=== PATIENT | male | born 1990 | race Caucasian/White ===

== ENCOUNTER 2019-04-28 17:22 | Emergency (ER) | payer OTHER, SELFPAY ==
[2019-04-28 17:36] VITALS: BP 146/91; PULSE 70; RESP 18; TEMP 36.8; O2SAT 97
--- NOTE | 2019-04-28 18:15 | ED.URI ---
HPI - URI/Sore Throat General Chief Complaint: Upper Respiratory Infection Stated Complaint: Congestion/Ear Pain Time Seen by Provider: 04/28/19 18:15 Source: patient and RN notes reviewed Mode of arrival: ambulatory Limitations: no limitations History of Present Illness HPI Narrative: 29-year-old male presents with concern for 7-day history flu symptoms, sore throat, ear pain, chest congestion, shortness of breath, coughing, nasal congestion. Reports symptoms have mildly improved, however ear pain remains as well as chest congestion, cough, shortness of breath. MD elicited complaint: sore throat Related Data Home Medications Medication Instructions Recorded Confirmed hydroxyzine HCl 10 mg PO TID 04/28/19 04/28/19 ziprasidone HCl [Geodon] 20 mg PO BID 04/28/19 04/28/19 Allergies Allergy/AdvReac Type Severity Reaction Status Date / Time No Known Allergies Allergy Mild Verified 05/16/10 22:47 Review of Systems Review of Systems: Narrative: CONSTITUTIONAL: Reports malaise, chills, sweats, or fever. EYES: Denies visual changes, redness, or discharge. ENT: Reports rhinorrhea, congestion, sinus pain, otalgia and sore throat. CARDIOVASCULAR: Denies chest pain, palpitations, or edema. RESPIRATORY: Reports cough, dyspnea. GASTROINTESTINAL: Denies abdominal pain, nausea, vomiting, diarrhea SKIN: Denies rash or itching. MUSCULOSKELETAL: Reports myalgia. NEUROLOGIC: Reports headache. All systems reviewed & are unremarkable except as noted in HPI and below PMFSH Comments At time of signature, agree with nursing past medical, surgical, social and family history. There is no relevant family history pertinent to the presenting complaint Exam Narrative: Exam Narrative: GENERAL: Well-appearing, well-nourished, and in no acute distress. HEAD: Normocephalic EYES: PERRLA, conjunctivae clear ENT: Nares clear, turbinates edematous and erythematous, clear discharge. Mucous membranes moist. TM pearly storm with dull light reflex bilaterally; no tragal tenderness. Oropharynx erythematous without lesions. Tonsils enlarged and without exudate, no drooling, no hoarseness, no trismus. NECK: Supple. No lymphadenopathy CHEST: Scattered expiratory wheeze, otherwise clear to auscultation, breath sounds equal. No rhonchi, rales, or stridor. No respiratory distress, speaks in full sentences. HEART: Regular rate and rhythm. No murmur heard. Normal peripheral pulses. SKIN: Warm, dry, no rash. NEURO: Alert and oriented x3. PSYCH: Normal mood and affect Course Course Emergency Course: Patient is aware of diagnosis, understands and agrees to treatment plan. Anticipatory guidance given. Patient agrees to follow-up as directed and is aware of reasons to seek care at the emergency department. Portions of this record may have been created with voice recognition software Vital Signs Vital signs: Vital Signs Temperature 98.2 F 04/28/19 17:36 Pulse Rate 70 04/28/19 17:36 Respiratory Rate 18 04/28/19 17:36 Blood Pressure 146/91 H 04/28/19 17:36 Pulse Oximetry 97 04/28/19 17:36 Temperature 98.2 F 04/28/19 17:36 Pulse Rate 70 04/28/19 17:36 Respiratory Rate 18 04/28/19 17:36 Blood Pressure 146/91 H 04/28/19 17:36 Pulse Oximetry 97 04/28/19 17:36 Reviewed. Pt has been instructed to follow up with his primary care provider within the next week regarding his elevated blood pressure today. MDM - URI/Sore Throat MDM Narrative Medical decision making narrative: Differential diagnosis considered: Strep pharyngitis, allergic rhinitis, upper respiratory tract infection, sinusitis, rhinosinusitis, nasopharyngitis. viral pharyngitis, otitis media, otitis externa, pneumonia, bronchitis, viral cough syndrome, viral syndrome, and influenza. Exam findings show no acute concerns or changes; patient is non-toxic appearing and is in no distress. Patient is appropriate for outpatient treatment and follow-up. Lab Data Attestation: I reviewed the p
== END 2019-04-28 18:40 | disposition home or self-care (01) ==
PROVIDERS: Emergency Provider Nurse Practitioner
DX: J32.9 Chronic sinusitis, unspecified (principal); J40 Bronchitis, not specified as acute or chronic; L40.9 Psoriasis, unspecified; F31.9 Bipolar disorder, unspecified
CPT/HCPCS: 87081; 87804; 87880; 99213; G0463

== ENCOUNTER 2019-05-09 19:27 | Emergency (ER) | payer OTHER, SELFPAY ==
--- NOTE | 2019-05-09 19:44 | ED.ABDPAIN ---
HPI - Abdominal Pain General Chief Complaint: Nausea/Vomiting/Diarrhea Stated Complaint: Abd pain Time Seen by Provider: 05/09/19 19:52 Source: patient and RN notes reviewed Mode of arrival: ambulatory Limitations: no limitations History of Present Illness HPI narrative: 29-year-old male presents with concern for 1 day history of nausea, vomiting, diarrhea, body aches. Reports family members with similar symptoms. Denies fever, chills, sweats, rhinorrhea, nasal congestion. Denies taking medications for symptoms. Reports recent sinus infection with subsequent ruptured left TM which she was previously seen for. He reports those symptoms resolved. MD elicited complaint: other (Nausea, vomiting, diarrhea) Related Data Home Medications Medication Instructions Recorded Confirmed ziprasidone HCl [Geodon] 20 mg PO BID 04/28/19 05/09/19 Allergies Allergy/AdvReac Type Severity Reaction Status Date / Time No Known Allergies Allergy Mild Verified 05/16/10 22:47 Review of Systems Review of Systems: Narrative: CONSTITUTIONAL: Reports malaise. Denies chills, sweats, or fever. EYES: Denies visual changes, redness, or discharge. ENT: Denies rhinorrhea, congestion, sinus pain, otalgia or sore throat. CARDIOVASCULAR: Denies chest pain, palpitations, or edema. RESPIRATORY: Denies cough or dyspnea. GASTROINTESTINAL: Denies abdominal pain, bloody, or mucous stools. Reports nausea, vomiting, diarrhea GENITOURINARY: Denies dysuria or hematuria. MUSCULOSKELETAL: Reports myalgia. NEUROLOGIC: Denies numbness, weakness, or headache. All systems reviewed & are unremarkable except as noted in HPI and below PMFSH Comments At time of signature, agree with nursing past medical, surgical, social and family history. There is no relevant family history pertinent to the presenting complaint Exam Narrative: Exam Narrative: GENERAL: Well-appearing, well-nourished, and in no acute distress. HEAD: Normocephalic, atraumatic. EYES: PERRLA, conjunctivae clear, and EOMI. ENT: Nares clear, turbinates pink, no rhinorrhea or epistaxis. Mucous membranes moist. Oropharynx without edema, erythema, or lesions. Tonsils not enlarged and without exudate. NECK: Supple. No lymphadenopathy CHEST: Speaks in full sentences. No respiratory distress. HEART: Regular rate and rhythm. ABDOMEN: Soft, flat, nondistended. No guarding, rebound tenderness, or rigid. No pulsatilla masses. Bowel sounds present in all four quadrants. No organomegaly. Negative Mojica?s sign. No periumbilical tenderness. No Supra public tenderness or distension. Good femoral pulses bilaterally. No hernia noted. No scars or surface trauma. SKIN: Warm, dry, no rash. NEURO: Alert and oriented x3. PSYCH: Normal mood and affect Course Course Emergency Course: Patient is aware of diagnosis, understands and agrees to treatment plan. Anticipatory guidance given. Patient agrees to follow-up as directed and is aware of reasons to seek care at the emergency department. Portions of this record may have been created with voice recognition software Vital Signs Vital signs: Vital Signs Temperature 97.8 F 05/09/19 19:46 Pulse Rate 105 H 05/09/19 19:46 Respiratory Rate 16 05/09/19 19:46 Blood Pressure 140/88 05/09/19 19:46 Pulse Oximetry 100 05/09/19 19:46 Temperature 97.8 F 05/09/19 19:46 Pulse Rate 105 H 05/09/19 19:46 Respiratory Rate 16 05/09/19 19:46 Blood Pressure 140/88 05/09/19 19:46 Pulse Oximetry 100 05/09/19 19:46 Reviewed. Pt has been instructed to follow up with his primary care provider within the next week regarding his elevated blood pressure today. MDM - Abdominal Pain MDM Narrative Medical decision making narrative: No evidence of pancreatitis, AAA, cholecystitis, choledocholithiasis, cholangitis, mesenteric ischemia, small bowel obstruction, diverticulitis, colitis, appendicitis. Patient has no history of peptic ulcer, H. pylori, chronic aspirin NSAID
[2019-05-09 19:46] VITALS: BP 140/88; PULSE 105; RESP 16; TEMP 36.6; O2SAT 100
== END 2019-05-09 20:05 | disposition home or self-care (01) ==
PROVIDERS: Emergency Provider Nurse Practitioner
DX: R11.2 Nausea with vomiting, unspecified (principal); R19.7 Diarrhea, unspecified; F31.9 Bipolar disorder, unspecified
CPT/HCPCS: 87804; 99213; G0463

== ENCOUNTER 2020-09-20 02:16 | Day surgery (SDC) | payer OTHER, SELFPAY ==
[2020-09-16 09:57] VITALS: BMI 33.1
--- NOTE | 2020-09-18 08:58 | PM.IMHP ---
H&P: HPI History of Present Illness Date/Time: 09/18/20 08:58 patient presents for planned surgical procedure. No changes in symptoms or medical history. Chief Complaint: Right EAC lesion, cholesteatoma, retained myringotomy tube left cerumen impaction Review of Systems Constitutional: Constitutional: Denies fatigue, Denies fever(s) and Denies lethargy Eyes: Eyes: Denies blurry vision and Denies change in vision ENT: Reports as per HPI Cardiovascular: Cardiovascular: Denies chest pain Respiratory: Respiratory: Denies cough Endocrine: Endocrine: Denies fatigue Hematologic/Lymphatic: Hematologic/Lymphatic: Denies easy bleeding, Denies easy bruising and Denies lymphadenopathy Allergic/Immunologic: Allergic/Immunologic: Denies seasonal rhinorrhea [facility] Past Medical History Medical History Central perforation of tympanic membrane, left ear Chronic otitis media of right ear Surgical History Surgical History Hx of tympanostomy tubes Family History Family History Father Cancer Social History Social History (Updated 08/19/20 @ 10:42 by Olinda Burroughs MA) Smoking packs per day: 1 Smoking cigarettes per day: 20.0 Years smoked: 15 Smoking pack-years: 15.00 Smoking status: Current every day smoker Tobacco type: cigarettes Second hand tobacco smoke exposure: Yes Alcohol intake: former Substance use: unknown Substance use type: marijuana Other substance usage details: very sparingly Last use: 09/07/20 Living arrangements: with family Spiritual care concerns: No Meds Home Medications and Allergies Home Medications Medication Instructions Recorded Confirmed Type ziprasidone HCl [Geodon] 20 mg PO BID 04/28/19 09/16/20 History albuterol sulfate 90 mcg/actuation 2 inh INHALATION Q4H PRN #8.5 g 06/06/20 09/16/20 Rx aerosol inhaler fluocinonide 0.05 % topical 1 applic TOPICAL BID #60 ml 08/02/20 09/16/20 Rx solution fluocinonide-emollient 0.05 % 1 applic TOPICAL BID #60 g 08/02/20 09/16/20 Rx topical cream Allergies Allergy/AdvReac Type Severity Reaction Status Date / Time No Known Allergies Allergy Mild Verified 09/16/20 09:54 Exam Const: General: cooperative, healthy appearing, comfortable, well developed and alert HENMT: Head: normal to inspection, normocephalic and atraumatic Ears: hearing grossly normal bilaterally, external ears normal and EAC's not normal ( cerumen obstructs the left lesion in the right) General nose exam: Normal external nose present, Normal nares present, No nasal polyps present, Normal nasal mucous membranes and turbinates present and Normal septum present Face and sinus: normal facial exam Mouth: Yes Normal oral and palatal mucosa present, Yes lip normal, Yes tongue normal, Yes oropharynx normal and Yes moist mucous membranes Teeth and gingiva: dentition normal and gingiva normal Throat: posterior oropharynx normal, tonsils normal and uvula midline Eyes: General: appearance normal, both eyes and all related structures Periorbital: periorbital findings normal Eyelids: eyelids normal Conjunctivae: conjunctivae normal Sclera: sclerae normal Neck: Neck: normal visual inspection, full ROM and no lymphadenopathy Thyroid: thyroid normal Lymphatic: no lymphadenopathy noted Resp: Effort & Inspection: normal respiratory effort and able to speak in complete sentences Cardio: Jugular venous distension: no JVD Neuro: Cranial nerves: Yes CN's II-XII intact bilaterally Assessment and Plan Assessment and plan (1) Cholesteatoma of right ear: Code(s): H71.91 - Unspecified cholesteatoma, right ear Status: Acute Assessment and Plan: plan is for the operating room for bilateral ear exam under anesthesia debridement of right-sided lesion possible ep
[2020-09-20] VITALS (8 sets, daily range): BP systolic 129–158; BP diastolic 70–95; PULSE 65–82; RESP 15–22; TEMP 36.3–36.4; O2SAT 94–99
--- NOTE | 2020-09-20 07:03 | WPDHPUPDATE1 ---
History and Physical Update Update Date/Time: 09/20/20 07:03 History and Physical has been reviewed, including an updated exam of the patient. There are NO changes in the patient's condition. Risks, benefits, and alternatives have been discussed and questions answered. Patient agrees to proceed with procedure.
--- NOTE | 2020-09-20 10:57 | WPDANESEPPF ---
Anes - Initial Pre Proc Eval Procedure: Operation Date: 09/20/20 12:30 Proposed Procedures p Excision Right Ear Lesion, Right Myringoplasty with Paper Patch - Moreno Reddy MD Date/Time: 09/20/20 10:57 Surgeon: Moreno Reddy MD Pre Op Diagnosis: Right tm perforation , Right ear lesion Patient Data Age: 30 Gender: M Height: 1.88 m Weight: 117.2 kg Allergies Allergy/AdvReac Type Severity Reaction Status Date / Time No Known Allergies Allergy Mild Verified 09/16/20 09:54 Home Medications Medication Instructions Recorded Confirmed Type ziprasidone HCl [Geodon] 20 mg PO BID 04/28/19 09/16/20 History albuterol sulfate 90 mcg/actuation 2 inh INHALATION Q4H PRN #8.5 g 06/06/20 09/16/20 Rx aerosol inhaler fluocinonide 0.05 % topical 1 applic TOPICAL BID #60 ml 08/02/20 09/16/20 Rx solution fluocinonide-emollient 0.05 % 1 applic TOPICAL BID #60 g 08/02/20 09/16/20 Rx topical cream Patient hx anesthesia problems: none Family hx anesthesia problems: none PMFSH Past Medical History Medical History Central perforation of tympanic membrane, left ear Chronic otitis media of right ear Surgical History Surgical History Hx of tympanostomy tubes Family History Family History Father Cancer Social History Social History Smoking packs per day: 1 Smoking cigarettes per day: 20.0 Years smoked: 15 Smoking pack-years: 15.00 Smoking status: Current every day smoker Tobacco type: cigarettes Second hand tobacco smoke exposure: Yes Alcohol intake: former Substance use: unknown Substance use type: marijuana Other substance usage details: very sparingly Last use: 09/07/20 Living arrangements: with family Spiritual care concerns: No Anes - Eval Final PreProcedure Day of Procedure 09/20/20 10:57 Patient weight: obese Lungs: clear to auscultation Airway: Mallampati scale class II and special considerations poor dentition Neurological: alert and oriented Last oral intake: >/= 8 hours ASA classification: III Emergent: no Anesthetic plan: proceed Anesthesia type and monitoring: general LMA and standard monitoring Informed Consent: The patient's anesthetic plan and its attendant risks and benefits were discussed with the patient/family/POA. Questions were solicited and answers provided to the satisfaction of the patient/family/POA.
[2020-09-20] MEDS: LACTATED RINGERS 1,000 ML 30 ML IV CONT (11:00)
[2020-09-20] MEDS: ACETAMINOPHEN 500 MG TABLET 1000 MG PO (11:00)
[2020-09-20] MEDS: ceFAZolin 2 GM/D5W 50 ML 2 GM/50 ML BAG IVPB (11:25)
--- NOTE | 2020-09-20 12:04 | P.OP_ITS ---
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 The patient then brought to the operative timeout performed. General anesthesia induced LMA secured. Arturo microscope brought into the field right EAC examined lesion removed from the TM consistent with cholesteatoma. Middle ear safe healthy significant retraction pocket but lesion not involving middle ear. Left ear examined retraction pocket no cholesteatoma or lesion. I performed all dictated Mandujano portions. Care the patient to Anesthesiology. No blood loss. No complications. Estimated Blood Loss 0 Drains No Packing No Pathology yes Complications No immediate complications Condition stable Disposition PACU
--- NOTE | 2020-09-20 12:17 | SUR.PHASEI ---
dr parker at side and talked to pt.
== END 2020-09-20 13:40 | disposition home or self-care (01) ==
PROVIDERS: PCP Family Medicine; Visit Provider Otolaryngology
PROC: (CPT 69424; principal; 2020-09-20 12:30)
DX: H60.41 Cholesteatoma of right external ear (principal); F17.210 Nicotine dependence, cigarettes, uncomplicated; F12.90 Cannabis use, unspecified, uncomplicated
CPT/HCPCS: 69145; A9270; J0690; J1100; J2250; J2405; J2704; J3010; J7120

== ENCOUNTER 2021-03-06 12:30 | Emergency (ER) | payer OTHER, SELFPAY ==
[2021-03-06 13:13] VITALS: BP 156/86; PULSE 87; RESP 20; TEMP 36.6; O2SAT 99
--- NOTE | 2021-03-06 13:52 | ED.LOWEXIN ---
HPI - Extremity Injury (Lower) General Chief Complaint: Extremity Injury, Lower Stated Complaint: Lift Knee Injury Time Seen by Provider: 03/06/21 13:24 Source: patient and RN notes reviewed Mode of arrival: ambulatory History of Present Illness HPI Narrative: This is a 31-year-old male presented to urgent care with complaints of left knee pain. According to patient approximately 1 month ago he injured his knee and has been wearing a brace with the use of ibuprofen to relieve his symptoms. Patient notes that yesterday he took off his brace and while at work he felt a pop to the back of his knee. Patient notes that he has had history of left knee pain but previously the pain is in the front of the knee this particular time it is in the back of the knee. The patient denies SOB, CP, palpitation, neurovascular deficiency, sensations positive, pulses present, extremity numbness, lightheadedness, dizziness, constipation, diarrhea, chills, or fever. Patient notes that he feels the most pain when he is bends his knee or bears weight. Related Data Home Medications Medication Instructions Recorded Confirmed albuterol sulfate See Rx Instructions .ROUTE .COMPLEX 03/06/21 03/06/21 fluocinonide-emollient See Rx Instructions .ROUTE .COMPLEX 03/06/21 03/06/21 [Fluocinonide-E] trazodone 50 mg PO DAILY 03/06/21 03/06/21 ziprasidone HCl 40 mg PO DAILY 03/06/21 03/06/21 Allergies Allergy/AdvReac Type Severity Reaction Status Date / Time No Known Allergies Allergy Mild Verified 09/20/20 12:01 [facility] Past Medical History Medical History Central perforation of tympanic membrane, left ear Chronic otitis media of right ear Encounter for general adult medical examination with abnormal findings Otitis externa of left ear Surgical History Surgical History History of ear surgery right cholesteatoma Hx of tympanostomy tubes Family History Family History Father Cancer Social History Social History Smoking packs per day: 1 Smoking cigarettes per day: 20.0 Years smoked: 15 Smoking pack-years: 15.00 Smoking status: Current every day smoker Tobacco type: cigarettes Second hand tobacco smoke exposure: Yes Alcohol intake: former Substance use: unknown Substance use type: marijuana Other substance usage details: very sparingly Last use: 09/07/20 Spiritual care concerns: No Exam Narrative: GENERAL: This is a well-nourished, well-developed patient, in no apparent distress. HEAD: normocephalic, atraumatic. EYES: PERRL. Sclera clear/white. Vision is grossly intact. EARS: External ears normal, auditory canals clear and without drainage, TMs normal without perforation. Hearing grossly intact. NOSE: External nose normal with no obvious nasal discharge, nares without redness, no rhinorrhea. THROAT: Mucous membranes moist, posterior pharynx clear. NECK: Neck supple, non-tender without lymphadenopathy, masses or thyromegaly. CARDIOVASCULAR: Regular rate and rhythm without murmurs, gallops, or rubs. RESPIRATORY: Clear to auscultation. Breath sounds equal bilaterally. No wheezes, rales, or rhonchi. GASTROINTESTINAL: Abdomen soft, non-tender, nondistended. Bowel sounds are active. No hepato-splenomegaly, or palpable masses. No guarding. SKIN: warm, intact with no suspicious lesions or rash, good texture and turgor. NEURO: awake, alert, and oriented to person, place and time. There were no obvious focal neurologic abnormalities. Steady gait EXTREMITIES: Normal range of motion., Pain with bending to the left leg no edema. No calf tenderness. Negative Homans sign bilaterally. BACK: Nontender without deformity or crepitance. No flank tenderness. Course Course Emergency Course: Diagnosed with strain or sp
== END 2021-03-06 13:55 | disposition home or self-care (01) ==
PROVIDERS: Emergency Provider Nurse Practitioner; PCP Family Medicine
DX: M25.562 Pain in left knee (principal); F17.210 Nicotine dependence, cigarettes, uncomplicated
CPT/HCPCS: 99213; G0463

== ENCOUNTER 2021-06-30 14:34 | Emergency (ER) | payer OTHER, SELFPAY ==
[2021-06-30 14:40] VITALS: BP 172/99; PULSE 86; RESP 20; TEMP 36.7; O2SAT 98
--- NOTE | 2021-06-30 15:17 | ED.GENADULT ---
HPI - General Adult General Chief complaint: Skin/Abscess/Foreign Body Stated complaint: Right Side Pain Time Seen by Provider: 06/30/21 15:08 Source: patient and RN notes reviewed Mode of arrival: ambulatory Limitations: no limitations History of Present Illness HPI narrative: Patient presents today complaining of a 3-week history of occasionally productive cough. Reports the cough has been slightly improving, but 6 days ago he had a coughing fit and felt a tear in his abdomen area and reports onset of bruising to the right lower abdomen that has been spreading along the lower abdomen for the past 6 days towards the midline. Denies fever, shortness of breath, but also reports some pain to the right anterior lower rib area. He has been taking cold medicine and Mucinex as well as 2 800 mg ibuprofen daily. MD complaint: Cough, bruising Related Data Home Medications Medication Instructions Recorded Confirmed ziprasidone HCl 40 mg PO DAILY 03/06/21 06/30/21 Allergies Allergy/AdvReac Type Severity Reaction Status Date / Time No Known Allergies Allergy Mild Verified 06/30/21 14:55 Review of Systems Review of Systems: CONSTITUTIONAL: Denies body aches, fever, chills, or sweats. EYES: Denies visual changes, redness, or discharge. ENT: Denies rhinorrhea, congestion, sore throat, or otalgia. CARDIOVASCULAR: Denies chest pain, palpitations, or edema. RESPIRATORY: Deniesdyspnea.+ Cough GASTROINTESTINAL: Denies abdominal pain, nausea, vomiting, or diarrhea. GENITOURINARY: Denies dysuria or hematuria. SKIN: Denies rash, itching, or wounds.+ Bruising to the abdomen MUSCULOSKELETAL: Denies back pain, joint pain, or myalgia. NEUROLOGIC: Denies headache, numbness, tingling, or weakness. PSYCH: Denies depression or anxiety. [facility] Past Medical History Medical History Central perforation of tympanic membrane, left ear Chronic otitis media of right ear Encounter for general adult medical examination with abnormal findings Otitis externa of left ear Surgical History Surgical History History of ear surgery right cholesteatoma Hx of tympanostomy tubes Family History Family History Father Cancer Social History Social History Smoking packs per day: 1 Smoking cigarettes per day: 20.0 Years smoked: 15 Smoking pack-years: 15.00 Smoking status: Current every day smoker Tobacco type: cigarettes Second hand tobacco smoke exposure: Yes Alcohol intake: former Substance use: unknown Substance use type: marijuana Other substance usage details: very sparingly Last use: 09/07/20 Spiritual care concerns: No Comments At time of signature, I have reviewed and agree with nursing past medical, surgical, social and family history unless otherwise noted. Please see nursing chart for further information. There is no relevant family history pertinent to the presenting complaint Exam Narrative: GENERAL: Well-appearing, well-nourished, and in no acute distress. HEAD: Normocephalic, atraumatic. EYES: EOMI. No redness or drainage. Conjunctivae normal. ENT: Mucous membranes pink and moist. Nares clear. No rhinorrhea. NECK: Normal AROM. Supple. No lymphadenopathy. CHEST: No respiratory distress. Clear to auscultation. Right anterior lower rib tenderness HEART: Regular rate and rhythm. No murmur appreciated. Normal peripheral pulses. ABDOMEN: Soft, nontender, nondistended, normal active bowel sounds. Ecchymosis of the right lower abdomen extending towards the midline. This area is mildly tender to palpation. MUSCULOSKELETAL: No bony tenderness. EXTREMITIES: Normal range of motion. No edema. SKIN: Warm, dry, no rash. Capillary refill normal. Normal skin turgor. NEURO: No focal
== END 2021-06-30 15:26 | disposition short-term general hospital (02) ==
PROVIDERS: Emergency Provider Nurse Practitioner; PCP Family Medicine
DX: R58 Hemorrhage, not elsewhere classified (principal); R05.9 Cough, unspecified; F17.210 Nicotine dependence, cigarettes, uncomplicated
CPT/HCPCS: 99212; G0463

== ENCOUNTER 2023-07-06 17:59 | Emergency (ER) | payer OTHER, SELFPAY ==
--- NOTE | ~2023-07-06 | XR_ITS ---
EXAM: XR wrist RT min 3V DATE: 07/06/2023 18:30 HISTORY: right wrist pain no injury . COMPARISON: None available. FINDINGS: Normal mineralization. No fracture or dislocation. No lytic or blastic lesion. Joint space s are maintained. No erosion or periosteal change. Soft tissues within normal limits. IMPRESSION: No acute osseous finding in the right wrist. Reviewed, dictated and finalized at location K.
--- NOTE | ~2023-07-06 | XR_ITS ---
EXAM: XR elbow RT min 3V DATE: 07/06/2023 18:30 HISTORY: right elbow pain , no injury . COMPARISON: None available. FINDINGS: Normal mineralization. No fracture or dislocation. No lytic or blastic lesion. Joint space s are maintained. No erosion or periosteal change. Soft tissues within normal limits. IMPRESSION: No acute osseous finding in the right elbow. Reviewed, dictated and finalized at location K.
[2023-07-06 18:05] VITALS: BP 138/91; PULSE 96; RESP 16; TEMP 36.9; O2SAT 97
--- NOTE | 2023-07-06 18:17 | ED.GENADULT ---
HPI - General Adult General Chief complaint: Extremity Injury, Lower Stated complaint: Right Wrist and Elbow Pain Source: patient Mode of arrival: ambulatory Limitations: no limitations History of Present Illness HPI narrative: Patient presents for evaluation of right wrist and right elbow pain. He indicates he was moving some items earlier today just prior to the time of symptom onset. He does not recollect any specific movement or injury, although his symptoms started after moving. He states none of the items which he was moving was particularly heavy. He has a history of a wrist sprain on the right and this feels similar. He rates the pain in his right elbow is 3/10 and describes it is aching. He rates the pain in his right wrist as 7/10. He tried taking naproxen and Tylenol for symptoms. He denies loss of range of motion but movement makes his symptoms worse. No paresthesias. He is right-hand dominant. Related Data Home Medications Medication Instructions Recorded Confirmed ziprasidone HCl 20 mg capsule 40 mg PO DAILY 03/06/21 07/06/23 Allergies Allergy/AdvReac Type Severity Reaction Status Date / Time No Known Allergies Allergy Mild Verified 07/06/23 18:12 Review of Systems Review of Systems: CONSTITUTIONAL: Denies fever, chills, or sweats. EYES: Denies visual changes, redness, or discharge. ENT: Denies rhinorrhea, congestion, sore throat, or otalgia. CARDIOVASCULAR: Denies chest pain, palpitations, or edema. RESPIRATORY: Denies cough or dyspnea. GASTROINTESTINAL: Denies abdominal pain, nausea, vomiting, or diarrhea. GENITOURINARY: Denies dysuria or hematuria. SKIN: Denies rash or itching. MUSCULOSKELETAL: Reports right wrist and right elbow pain NEUROLOGIC: Denies headache, numbness, dizziness, or weakness. PSYCHIATRIC: Denies anxiety or depression. [facility] Past Medical History Medical History Central perforation of tympanic membrane, left ear Chronic otitis media of right ear Encounter for general adult medical examination with abnormal findings Otitis externa of left ear Psoriasis Surgical History Surgical History History of ear surgery right cholesteatoma Hx of tympanostomy tubes Family History Family History Father Cancer Social History Social History Smoking packs per day: 1 Smoking cigarettes per day: 20.0 Years smoked: 15 Smoking pack-years: 15.00 Smoking status: Current every day smoker Tobacco type: cigarettes Second hand tobacco smoke exposure: Yes Alcohol intake: former Substance use: unknown Substance use type: marijuana Other substance usage details: very sparingly Last use: 09/07/20 Lack of Transportation: No Lack of Food: Never True Current Housing: I Have Housing Concerned About Future Housing: No Difficulty Paying Gas/Electric Bills: No Difficulty Paying for Meds: YES Currently Unemployed: No Education: High School Diploma/GED Living arrangements: with family Spiritual care concerns: No Exam Narrative: GENERAL: Well-appearing, well-nourished, and in no acute distress. HEAD: Normocephalic, atraumatic. EYES: PERRLA and EOMI. ENT: Nares clear, no rhinorrhea or epistaxis. Mucous membranes moist. Oropharynx without tonsillar hypertrophy exudate or other lesions. Bilateral TMs pearly storm nonbulging NECK: Supple. No adenopathy or masses. No carotid bruits or JVD CHEST: Clear to auscultation. No respiratory distress. No wheezes rales or rhonchi HEART: Regular rate and rhythm. No murmur heard. Normal peripheral pulses. ABDOMEN: Soft, nontender, nondistended, normal active bowel sounds. EXTREMITIES: Full range of motion of the right wrist but moves with hesitancy secondary to pain. 4/5
== END 2023-07-06 18:50 | disposition home or self-care (01) ==
PROVIDERS: Emergency Provider Nurse Practitioner
DX: S63.501A Unspecified sprain of right wrist, initial encounter (principal); S53.401A Unspecified sprain of right elbow, initial encounter; T14.90XA Injury, unspecified, initial encounter; F17.210 Nicotine dependence, cigarettes, uncomplicated
CPT/HCPCS: 73080; 73110; 99214; G0463

== ENCOUNTER 2024-06-13 11:36 | Emergency (ER) | payer SELFPAY ==
[2024-06-13 11:45] VITALS: BP 167/99; PULSE 82; RESP 20; TEMP 36.7; O2SAT 100
--- NOTE | 2024-06-13 12:04 | ED_ITS ---
HPI - Male Genitourinary General Chief complaint: Urogenital-Male Stated complaint: Testicular Pain Time Seen by Provider: 06/13/24 11:55 Source: patient, RN notes reviewed and old records reviewed Mode of arrival: ambulatory Limitations: no limitations History of Present Illness HPI Narrative: 34 year old male who [facility] with complaints of having testicle pain to the left side since Wednesday. Patient reports that pain is worse with sitting or with ambulation.Patient reports that he has noted increased scrotal swelling and left testicle swelling for the past 2 days, Patient reports that he has been taking Tylenol, Ibuprofen and using ice and also some naproxen for his discomfort and swelling. Patient reports no difficulty with voiding or any concern for STD exposure. MD Complaint: testicle pain, testicle swelling and other (some warmth) Onset (ago): day(s) (5-6 days) Location: left testicle Quality: aching and other (soreness) Exacerbating factors: other (sitting and walking) Associated symptoms: Reports other (redness swelling left testicle) Related Data Home Medications ?Medication ?Instructions ?Recorded ?Confirmed ?Last Taken ?Type No Home Medications 06/13/24 06/13/24 Unknown History Allergies Allergy/AdvReac Type Severity Reaction Status Date / Time No Known Allergies Allergy Mild Verified 06/13/24 12:00 Review of Systems Review of Systems: CONSTITUTIONAL: Denies fever, chills, or sweats. CARDIOVASCULAR: Denies chest pain, palpitations, or edema. RESPIRATORY: Denies cough or dyspnea. GASTROINTESTINAL: Denies abdominal pain, nausea, vomiting, or diarrhea. GENITOURINARY: Reports no dysuria, frequency, urgency. Denies flank pain or hematuria. reports pain to left testicle since Wednesday, no difficulty voiding or any penis discharge, scrotal swelling and swelling left testicle SKIN: Denies rash or itching. MUSCULOSKELETAL: Denies back pain or myalgia. Denies CVA tenderness NEUROLOGIC: Denies headache All systems reviewed & are unremarkable except as noted in HPI and below PMFSH Past Medical History Medical History Psoriasis Otitis externa of left ear Encounter for general adult medical examination with abnormal findings Chronic otitis media of right ear Central perforation of tympanic membrane, left ear Surgical History Surgical History History of ear surgery right cholesteatoma Hx of tympanostomy tubes Family History Family History Father Cancer Social History Social History Smoking packs per day: 1 Smoking cigarettes per day: 20.0 Years smoked: 15 Smoking pack-years: 15.00 Smoking status: Current every day smoker Tobacco type: cigarettes Second hand tobacco smoke exposure: Yes Alcohol intake: former Substance use: unknown Substance use type: marijuana Other substance usage details: very sparingly Last use: 09/07/20 Lack of Transportation: No Lack of Food: Never True Current Housing: I Have Housing Concerned About Future Housing: No Difficulty Paying Gas/Electric Bills: No Difficulty Paying for Meds: YES Currently Unemployed: No Education: High School Diploma/GED Living arrangements: with family Spiritual care concerns: No Comments At time of signature, agree with nursing past medical, surgical, social and family history. There is no relevant family history pertinent to the presenting complaint Exam Narrative: GENERAL: Well-appearing, well-nourished, and in some acute distress related to testicle pain and swelling. HEAD: Normocephalic, atraumatic. NECK: Supple.no lymphadenopathy CHEST: Clear to auscultation. No respiratory distress.SAO2 100% on room air HEART: Regular rate and rhythm. No murmur heard. Normal peripheral pulses. ABDOMEN: Soft, nontender, nondistended, normal active bowel sounds. No CVA tenderness. Scrotal swelling noted on examination with left testicle swollen in comparison to right, painful on palpation with some warmth left testicle, cremasteric reflex present EXTREMITIES: Normal range of motion. No edema. SKIN: Warm, dry, no rash. NEURO: No focal deficits. Alert and oriented x3. Course Course Emergency Course: Patient is aware of diagnosis, understands and agrees to treatment plan.? Anticipatory guidance given.? Patient agrees to follow-up as directed and is aware of reasons to seek care at the emergency department. Portions of this record may have been created with voice recognition software Level of Care: Express Care Visit Vital Signs Vital signs: Vital Signs Temperature 36.7 C 06/13/24 11:45 Pulse Rate 82 06/13/24 11:45 Respiratory Rate 20 06/13/24 11:45 Blood Pressure 167/99 H 06/13/24 11:45 Pulse Oximetry 100 06/13/24 11:45 Oxygen Delivery Room Air 06/13/24 11:45 Temperature 36.7 C 06/13/24 11:45 Pulse Rate 82 06/13/24 11:45 Respiratory Rate 20 06/13/24 11:45 Blood Pressure 167/99 H 06/13/24 11:45 Pulse Oximetry 100 06/13/24 11:45 Oxygen Delivery Room Air 06/13/24 11:45 Transfer Transfered to: [facility] ([place]) Transportation: Other (per private car) Transfer rationale: Patient needs further diagnostic testing than can be performed in urgent care Accepting physician: Kathy Transfer comments: Patient to [facility] ED for further evaluation by private car. MDM - Male Genitourinary MDM Narrative Medical decision making narrative: Call placed to ED at [facility], and condition update and findings, VS and past medical history reviewed with Nikita Goss SANDBLAST CARVER with Dr Chavez accepting physician for transfer. Differential Diagnosis Differential diagnosis: Likely urethritis, epididymitis, prostatitis and other (testicular pain and swelling, hydrocele) Medical Records Attestation: I reviewed the patient's medical records. Lab Data Attestation: I reviewed the patient's lab results. Critical Care Time Critical Care Time Critical Care Time: No Discharge Plan Discharge Clinical Impression: Left testicular pain, Swelling of left testicle Patient Disposition: Acute Care Hospital Condition: Stable Patient Language: [place] Island[place] Prescriptions: No Action No Home Medications Follow-up/Referrals: UNKNOWN,DOCTOR [Primary Care Provider] - Time of Disposition: 12:27 Quality Alexandrea Coma Scale Eyes: Open Verbal: Oriented and Alert Motor: Follows Commands Alexandrea Coma Total Score: 15
--- OUTSIDE RECORDS SUMMARY | 2024-06-13 12:50 | XMS_ITS | Clinical Summary ---
Author Organization [facility] [employer] Address [address] 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 This disclosure is being madepursuant to the Care Everywhere program and may not contain all information available regarding this patient. Last updated 17.[employer] Allergies No known active allergies Medications * Be aware that medications may not be up to date on this document. Alwaysverify current medications with the patient. lamoTRIgine (LAMICTAL) 200 MG tablet TK 1 T PO QD 0 8 Active OLANZapine (ZYPREXA) 10 MG tablet TK 1 T PO HS 0 8 Active betamethasone dipropionate 0.05 % lotionIndications :Plaque psoriasis Apply to affected area on scalp and elbow twice daily. 30 days supply. 60 mL 5 8 Active hydrocortisone (HYTONE) 2.5 % ointmentIndicatio ns:Plaque psoriasis Apply to affected area on genital skin twice daily. 30 days supply. 454 g 2 8 Active ketoconazole (NIZORAL) 2 % shampooIndication s:Plaque psoriasis Apply to scalp up to daily, lather on for 3-5 minuets before washing off. 30 DS 240 mL 11 8 Active Active Problems Problem Noted Date Diagnosed Date Plaque psoriasis 12/30/2017 Family History Medical History Relation Name Comments Asthma Neg Hx CVA Neg Hx Cancer - Breast Neg Hx Cancer - Other Neg Hx Cancer - Skin, Melanoma Neg Hx Cancer - Skin, Non Melanoma Neg Hx Eczema Neg Hx Hemophilia Neg Hx Psoriasis Neg Hx Social History Tobacco Use Types Packs/Day Years Used Date Smoking Tobacco: Every Day Smokeless Tobacco: Former Alcohol Use Standard Drinks/Week Comments No 0 (1 standard drink = 0.6 oz pur e alcohol) Sex and Gender Information Value Date Recorded Sex Assigned at Not on file Legal Sex Male 10:36 AM CDT Gender Identity Not on file Sexual Orientation Not on file Plan of Treatment Health Maintenance Due Date Last Done Comments HIV SCREENING 2003 HEPATITIS C SCREENING 03/24/2006 DTAP/TDAP/TD VACCINES (1 - Tdap) 2007 HEPATITIS B VACCINE (1 of 3 - 19+ 3-dose series) 2007 PNEUMOCOCCAL VACCINE (1 of 2 - PCV) 2007 COVID-19 VACCINE (1 - 2023-2 5 season) 2023 DEPRESSION SCREENING 03/01/2024 INFLUENZA VACCINE (Season Ended) 2024 ZOSTER VACCINE (1 of 2) 2038 HIB VACCINE Aged Out No longer eligi ble based on patient's age to complete this topic HPV VACCINE Aged Out No longer eligi ble based on patient's age to complete this topic MENINGOCOCCAL (Group B) VACC INE SHARED DECISION-MAKING Aged Out No longer eligibl e based on patient's age to complete this topic MENINGOCOCCAL GROUPS A/C/Y/W VACCINE Aged Out No longer eligible b ased on patient's age to complete this topic [place] [address] [address] [place] [address]
== END 2024-06-13 12:27 | disposition short-term general hospital (02) ==
PROVIDERS: Emergency Provider Registered Nurse
DX: N50.812 Left testicular pain (principal); N50.89 Other specified disorders of the male genital organs; F17.210 Nicotine dependence, cigarettes, uncomplicated; L40.9 Psoriasis, unspecified
CPT/HCPCS: 99212; G0463

== ENCOUNTER 2024-12-06 11:15 | Emergency (ER) | payer OTHER, SELFPAY ==
[2024-12-06 11:23] VITALS: BP 149/89; PULSE 70; RESP 20; TEMP 36.6; O2SAT 98
--- NOTE | 2024-12-06 11:45 | ED.EAR ---
HPI - Ear Problem General Chief complaint: Wound/Laceration Stated complaint: Ear Pain/Right Thumb Nail Time Seen by Provider: 12/06/24 11:45 Source: patient, RN notes reviewed and old records reviewed Mode of arrival: ambulatory Limitations: no limitations History of Present Illness HPI Narrative: 34 year old male who presents to [facility] care with complaints of bilateral ear pain and some decreased hearing for several weeks, concern for rash to the left inner antecubital area that is itchy and some black discoloration to the lateral aspect of thumbnail. Patient has long history of ear problems with ear tubes in past none presently and removal of cholesteatoma from right ear in past. Patient has history of psoriasis and states he uses tar preparation to elbows and knees and also has psoriasis on scalp. Area on right lateral thumb appears to be old bruise with no swelling of thumb or any redness of nail bed. Patient has small area of red raised itchy rash to left antecubital area reports no known new contacts, no vessicles or weeping. Patient has history of bipolar disorder and is not presently on any medication states doesn't have doctor. Patient reports that he had lost his insurance. MD Complaint: ear pain Location: bilateral Duration: constant Severity: mild Discharge from ear: Reports no Associated symptoms ear: decreased hearing Treatment prior to arrival: none Related Data Allergies Allergy/AdvReac Type Severity Reaction Status Date / Time No Known Allergies Allergy Mild Verified 12/06/24 11:18 Review of Systems Review of Systems: CONSTITUTIONAL: Denies malaise, chills, sweats, or fever. EYES: Denies visual changes, redness, or discharge. ENT: Reports no rhinorrhea, congestion, sinus pain,positive for otalgia and no sore throat. CARDIOVASCULAR: Denies chest pain, palpitations, or edema. RESPIRATORY: Reports no cough.? Denies dyspnea. GASTROINTESTINAL: Denies abdominal pain, nausea, vomiting, diarrhea SKIN:has small area of raised red rash to inner antecubital which he states is itchy, has history of psoriasis noted on elbows knee and in scalp, also reports concern for blackened are to lateral aspect of right thumb nail appears as bruised under nail with no redness of surrounding skin states no known injury to area. MUSCULOSKELETAL: Denies myalgia. NEUROLOGIC: Denies headache. All systems reviewed & are unremarkable except as noted in HPI and below PMFSH Past Medical History Medical History Psoriasis Otitis externa of left ear Encounter for general adult medical examination with abnormal findings Chronic otitis media of right ear Central perforation of tympanic membrane, left ear Surgical History Surgical History History of ear surgery right cholesteatoma Hx of tympanostomy tubes Family History Family History Father Cancer Social History Social History (Updated 12/07/24 @ 09:20 by Evette Barrera NP) Smoking packs per day: 1 Smoking cigarettes per day: 20.0 Years smoked: 15 Smoking pack-years: 15.00 Smoking status: Former smoker Tobacco type: cigarettes Second hand tobacco smoke exposure: Yes Alcohol intake: former Substance use: unknown Substance use type: marijuana Other substance usage details: very sparingly Last use: 09/07/20 Lack of Transportation: No Lack of Food: Never True Current Housing: I Have Housing Concerned About Future Housing: No Difficulty Paying Gas/Electric Bills: No Difficulty Paying for Meds: YES Currently Unemployed: No Education: High School Diploma/GED Living arrangements: with family Spiritual care concerns: No Comments At time of signature, agree with nursing past medical, surgical, social and family history. There is no relevant family history pertinent to the presenting complaint Exam Narrative: GENERAL: Well-appearing, well-nourished, and in no acute distress. HEAD: Normocephalic EYES: PERRLA, conjunctivae clear ENT: Nares clear, turbinates edematous and erythematous, clear discharge. Mucous membranes moist. Right TM red and retracted Left TM pearly storm with dull light reflex; no tragal tenderness. Oropharynx erythematous without lesions. Tonsils not enlarged and without exudate, no drooling, no hoarseness, no trismus, uvula midline. NECK: Supple. No lymphadenopathy CHEST: Clear to auscultation, breath sounds equal. No wheezing, rhonchi, rales, or stridor. No respiratory distress, speaks in full sentences.no cough noted SAO2 98% on room air HEART: Regular rate and rhythm. No murmur heard. SKIN: Warm, dry,history of psoriasis on elbows knees and scalp has small area of red raised itchy rash left antecubital denies any new contacts, bruising to lateral aspect of right thumb nail with no redness of surrounding tissue denies any known injury. NEURO: Alert and oriented x3. PSYCH: Normal mood and affect history of bipolar disease is not on any present medication Course Course Emergency Course: Patient is aware of diagnosis, understands and agrees to treatment plan.? Anticipatory guidance given.? Patient agrees to follow-up as directed and is aware of reasons to seek care at the emergency department. Portions of this record may have been created with voice recognition software Level of Care: Express Care Visit Vital Signs Vital signs: Vital Signs Temperature 36.6 C 12/06/24 11:23 Pulse Rate 70 12/06/24 11:23 Respiratory Rate 20 12/06/24 11:23 Blood Pressure 149/89 H 12/06/24 11:23 Pulse Oximetry 98 12/06/24 11:23 Oxygen Delivery Room Air 12/06/24 11:23 Temperature 36.6 C 12/06/24 11:23 Pulse Rate 70 12/06/24 11:23 Respiratory Rate 20 12/06/24 11:23 Blood Pressure 149/89 H 12/06/24 11:23 Pulse Oximetry 98 12/06/24 11:23 Oxygen Delivery Room Air 12/06/24 11:23 Reviewed Medical Decision Making Differential Diagnosis Differential Diagnosis: contact dermatitis, otitis media, otalgia, bruise area to right thumb nail, Medical Records Medical records reviewed: Yes I reviewed the external patient's medical records. Vital Signs Vital Signs: Vital Signs Temperature 36.6 C 12/06/24 11:23 Pulse Rate 70 12/06/24 11:23 Respiratory Rate 20 12/06/24 11:23 Blood Pressure 149/89 H 12/06/24 11:23 Pulse Oximetry 98 12/06/24 11:23 Oxygen Delivery Room Air 12/06/24 11:23 Temperature 36.6 C 12/06/24 11:23 Pulse Rate 70 12/06/24 11:23 Respiratory Rate 20 12/06/24 11:23 Blood Pressure 149/89 H 12/06/24 11:23 Pulse Oximetry 98 12/06/24 11:23 Oxygen Delivery Room Air 12/06/24 11:23 reviewed Critical Care Time Critical Care Time Critical Care Time: No Discharge Plan Discharge Clinical Impression: Acute right otitis media, Contact dermatitis and eczema Patient Disposition: Home Condition: Stable Instructions: Antibiotic Form, Ear Infection (ED), Dermatitis (ED) Additional Instructions: Increase fluids especially juices and water [id number] cough and cold medicine of your choice for your symptoms Zyrtec Claritin or Zoey daily Tylenol or ibuprofen for any fever pain Steroids as directed--take with food heat to the face 20-30 minutes 4-6 times a day for pain Salt water gargles, throat lozenges or throat sprays as desired Antibiotic as directed--finished the medication If your symptoms persist, change or worsen significantly before you can contact your personal physician then please, without delay, go to the emergency department for further evaluation. Follow-up with PCP in 7-10 days or sooner if needed Follow up with PCP soon in regards to your blood pressure which is elevated above threshold for referral. Blood pressure above 120/80 may indicate pre-hypertension. 149/89 Patient Language: Dominican Prescriptions: New amoxicillin-pot clavulanate 875-125 mg tablet 1 tablet PO Q12H Qty: 20 0RF prednisone 20 mg tablet 40 mg PO DAILY Qty: 10 0RF triamcinolone acetonide 0.1 % ointment 1 applic topical BID Qty: 80 0RF Rx Instructions: apply to rash up to 2 times daily and for no more that 14 days, never apply this to face Follow-up/Referrals: PHYSICIAN,PRESSURE TESTING TECHNICIAN [Primary Care Provider, Internal Medicine] Time of Disposition: 11:58 Quality Richmond Coma Scale Eyes: Open Verbal: Oriented and Alert Motor: Follows Commands [place] Coma Total Score: 15
== END 2024-12-06 12:05 | disposition home or self-care (01) ==
PROVIDERS: Emergency Provider Registered Nurse
DX: H66.91 Otitis media, unspecified, right ear (principal); L25.9 Unspecified contact dermatitis, unspecified cause; Z87.891 Personal history of nicotine dependence; L40.9 Psoriasis, unspecified
CPT/HCPCS: 99213; G0463